=== PATIENT | male | born 1985 | race Caucasian/White ===

== ENCOUNTER 2019-03-17 06:40 | Observation (INO) ==
[2019-03-17 07:02] LABS: Microscopic, Urine URINE MICROSCOPIC (MICROSCOPIC)
[2019-03-17 07:04] LABS: Eosinophils # 0.1 K/mm3 (0.0-0.4); Eosinophils % 0.8 % (0.1-12.0); Hematocrit 46.7 % (42.0-52.0); Lymphocytes # 0.8 K/mm3 (0.7-4.5); Lymphocytes % 5.1 % (10-50); Mean Corpuscular HGB Conc 34.3 g/dL (31.8-35.4); Mean Corpuscular Volume 92.8 fl (80-94); Mean Platelet Volume 7.6 fl (7.4-10.4); Monocytes # 0.8 K/mm3 (0.1-1.0); Neutrophils # 14.6 K/mm3 (1.8-7.8); Platelet Count 267 K/mm3 (142-424); Red Blood Count 5.03 M/mm3 (4.60-6.20); Red Cell Distribution Width 12.4 % (11.5-17.5); White Blood Count 16.4 K/mm3 (4.8-10.8)
[2019-03-17 07:06] LABS: Appearance,Urine CLEAR (Clear); Bilirubin,Urine Negative (Negative); Blood, Urine Negative (Negative); Color,Urine YELLOW (Yellow); Glucose,Urine (UA) Negative (Negative); Ketones,Urine 1+ (Negative); Leukocyte Esterase,Urine Negative (Negative); Protein,Urine Negative (Negative); Specific Gravity, Urine >= 1.030 (1.005-1.030); Urobilinogen,Urine 0.2 EU/dl (0.2)
[2019-03-17 07:17] LABS: Albumin Level 4.4 gm/dL (3.4-5.0); Albumin/Globulin Ratio 1.1 (1.1-1.8); Anion Gap 13.6 mEq/L (5-15); Bilirubin,Total 0.7 mg/dL (0.2-1.0); Calcium 8.8 mg/dL (8.5-10.1); Total Protein,Serum 8.4 gm/dL (6.4-8.2)
--- NOTE | 2019-03-17 07:29 | Emergency Department Note ---
ED Disposition Clinical Impression: Acute appendicitis Qualifiers: Acute appendicitis type: unspecified acute appendicitis type Qualified Code(s): K35.80 - Unspecified acute appendicitis Disposition: Admitted as Observation Condition on Discharge: Good Instructions: DI for Acute Abdomen Referrals: Provider,Referral, [Primary Care Provider] - - Critical Care Critical Care Time: No Attestation: On 03/17/19, the high probability of a clinically significant, sudden or life threatening deterioration of the following system(s) required my full and direct attention, intervention and personal management. The time I documented below is in addition to time spent performing reported procedures but includes the following listed in this critical care notation. Medical Decision Making - Medical Records Medical records reviewed: Yes: I reviewed the patient's medical records. - Favian Inquiry Pt receiving controlled substance: No Vital Signs: 03/17/19 06:49 Temperature 98.6 F Temperature Source Oral Pulse Rate [Right Brachial] 94 H Respiratory Rate 20 Blood Pressure [Right Arm] 144/7 H Blood Pressure Mean [Right Arm] 52 Blood Pressure Source [Right Arm] Automatic Cuff Blood Pressure Position [Right Arm] Sitting 02 Sat by Pulse Oximetry 99 Oxygen Delivery Method Room Air - Lab Data Lab results reviewed: Yes: I reviewed the patient's lab results. Lab Results 03/17/19 06:50: Urine Color Yellow, Urine Appearance Clear, Urine pH 6.0, Ur Specific [place] >= 1.030, Urine Protein Negative, Urine Glucose (UA) Negative, Urine Ketones 1+, Urine Blood Negative, Urine Nitrate Negative, Urine Bilirubin Negative, Urine Urobilinogen 0.2, Ur Leukocyte Esterase Negative, Urine RBC Occasional, Urine WBC 5-10, Ur Squamous Epith Cells 5-10, Urine Bacteria 1+ 03/17/19 06:50: WBC 16.4 H, RBC 5.03, Hgb 16.0, Hct 46.7, MCV 92.8, MCH 31.9 H, MCHC 34.3, RDW 12.4, Plt Count 267, MPV 7.6, Neut % (Auto) 89.0 H, Lymph % (Auto) 5.1 L, [place] % (Auto) 5.0, Eos % (Auto) 0.8, Baso % (Auto) 0.0 L, Neut # (Auto) 14.6 H, Lymph # (Auto) 0.8, [place] # (Auto) 0.8, Eos # (Auto) 0.1, Baso # (Auto) 0.0, Total Counted 100, Neutrophils % (Manual) 89 H, Lymphocytes % (Manual) 7 L, Monocytes % (Manual) 2, Metamyelocytes % 2.0 H, Platelet Estimate Normal, RBC Morphology Normal 03/17/19 06:50: Sodium 136, Potassium 3.6, Chloride 99, Carbon Dioxide 27, Anion Gap 13.6, BUN 13, Creatinine 0.89, Estimated Creat Clear 154, Estimated GFR 98, Est GFR ( Amer) 118, Glucose 133 H, Calcium 8.8, Total Bilirubin 0.7, AST 25, ALT 37, Alkaline Phosphatase 40 L, Total Protein 8.4 H, Albumin 4.4, Globulin 4.0 H, Albumin/Globulin Ratio 1.1, Amylase 20 L, Lipase 65 L Result diagrams: 03/17/19 06:50 03/17/19 06:50 Orders (Tests/Meds): ED MEDICATIONS Generic Name Dose Route Start Last Admin Trade Name Freq PRN Reason Stop Dose Admin Sodium Chloride 1,000 mls @ 999 mls/hr 03/17/19 07:00 03/17/19 07:03 Sod Chlor 0.9% 1000ml Bag IV 03/17/19 08:00 999 mls/hr .[id number] PRASANNA Administration Discontinued Medications Generic Name Dose Route Start Last Admin Trade Name Freq PRN Reason Stop Dose Admin Ioversol 75 ml 03/17/19 07:31 03/17/19 07:31 Rad-Optiray 350 100ml Vial IV 03/17/19 07:32 75 ml ONCE ONE Administration Protocol Ketorolac Tromethamine 30 mg 03/17/19 06:56 03/17/19 07:03 Toradol 30mg/Ml Vial IV 03/17/19 06:57 30 mg ONCE ONE Administration Ondansetron HCl 4 mg 03/17/19 06:56 03/17/19 07:03 Zofran 4mg/2ml Vial IV 03/17/19 06:57 4 mg ONCE ONE Administration ORDERS Category Date Time Status CT abdomen pelvis w con Stat Cat Scan 03/17/19 06:56 Taken - CT Data CT Scan: Abdomen, Pelvis Time Received: 07:[address] Reviewed: Yes: I have viewed the radiologist's interpretation Preliminary Findings: Abnormal (acute appendicitis) - Physician Consults Physician Consulted: libia Reason -: Admission Nausea/Vomiting/Diarrhea HPI - General Chief complaint: Abdominal Pain Stated complaint: right side pain Time Seen by Provider: 03/17/19 07:25 Mode of Arrival: Ambulatory Source of Information: Patient, Medical Record Limitations: No Limitations Description of Symptoms (Recalled from ER Triage Doc. by RN): PATIENT AMBULATORY TO TX 10 C/O R SIDE ABDOMINAL PAIN THAT STARTED AROUND 0230 THIS AM. STATES HE INITIALLY THOUGHT HE "WAS BACKED UP" SO HE TOOK SOME MAG CITRATE IN ORDER TO INDUCE A BM. STATES MAG CITRATE HAS NOT HELPED AND HE IS STILL EXPERIENCING THE PAIN. REPORTS JUST FINISHING TREATMENT FOR HEP C. - History of Present Illness HPI Narrative: acute onset of rt lower abd pain MD complaint: nausea, abdominal pain Onset (ago): hour(s) Associated Abdominal Pain: Yes Location of pain: periumbilical Severity: moderate Associated symptoms: denies other symptoms - Related Data Home Medications Medication Instructions Recorded Confirmed Amitriptyline HCl [Elavil 25mg 1 tab PO DAILY 03/17/19 03/17/19 tablet] Allergies Allergy/AdvReac Type Severity Reaction Status Date / Time No Known Allergies Allergy Verified 03/17/19 06:55 [facility] History - Hepatitis A Screen Drug use history?: No High risk sexual behaviors?: No History of sexually transmitted infection?: No Currently employed?: No Childcare worker?: No Do you have indoor plumbing?: Yes Do you have electricity?: Yes Attestation statement:: This patient has been screened for Hepatitis A risk factors. I have reviewed the patient's past medical history: Yes - Social History Smoking Status: Current every day smoker Tobacco Type: cigars # Packs/Day (cigarettes): 4 Alcohol Intake: current Alcohol Intake Frequency:: 3 or more drinks per day Occupational Status: employed Housing: house Household Members: significant other ROS Obtained: Yes All systems reviewed & no additional complaints - Constitutional Constitutional: Denies fever(s) - Eyes Eyes: Denies change in vision - ENT Ears, Nose, Mouth, and Throat: Denies sore throat - Cardiovascular Cardiovascular: Denies chest pain - Respiratory Respiratory: No cough - Gastrointestinal Gastrointestingal: Reports: as per HPI, abdominal pain, nausea. Denies: vomiting - Genitourinary Male Genitourinary: Denies hematuria - Musculoskeletal Musculoskeletal: Denies joint pain, Denies joint swelling - Integumentary/Breasts Skin/Breast: Denies rash - Neurologic Neurologic: Denies focal weakness, Denies seizure-like activity Physical Exam - General General appearance: alert - Head Head exam: normocephalic - Eye Eye exam: Present: PERRL, EOMI. Absent: scleral icterus - ENT ENT exam: Present: mucous membranes dry - Neck Neck exam: Present: trachea midline - Respiratory Respiratory exam: Present: normal lung sounds bilaterally. Absent: respiratory distress - Cardiovascular Cardiovascular exam: Present: regular rate - Abdominal Exam Abdominal exam: Present: soft, tenderness, tenderness at McBurney's Point Abdominal tenderness: Present: RLQ, moderate - Extremities Exam Extremities exam: Present: full ROM - Neurological Exam Neurological exam: Present: alert, oriented X3, CN II-XII intact - Psychiatric Psychiatric exam: Present: normal affect - Skin Skin exam: Absent: rash
[2019-03-17 07:34] LABS: Lymphocytes % 7 % (10-50); Monocytes % 2 % (2-9); Neutrophils % 89 % (42-76); RBC Morphology Normal; Total Cells Counted 100
[2019-03-17 07:40] LABS: Bacteria,Urine 1+ /lpf; RBC,Urine Occasional #/hpf (0-3)
--- NOTE | 2019-03-17 09:25 | Pharmacy Consult Notes ---
[facility] Pharmacy VTE Monitoring - Patient Demographics Admission date: 03/17/19 Report Date: 03/17/19 Time: 09:23 Allergies/Adverse Reactions: Patient Allergies No Known Allergies Allergy (Verified 03/17/19 06:55) Height: 1.8 m Weight: 91.427 kg Patient Problems: Current Active Problems Acute appendicitis (Acute) - VTE Risk Labs: VTE Related Lab Results Hgb 16.0 g/dL (14.1-18.0) 03/17/19 06:50 Hct 46.7 % (42.0-52.0) 03/17/19 06:50 Plt Count 267 K/mm3 (142-424) 03/17/19 06:50 BUN 13 mg/dL (7-18) 03/17/19 06:50 Creatinine 0.89 mg/dL (0.70-1.30) 03/17/19 06:50 Estimated Creat Clear 154 mL/min (50-200) 03/17/19 06:50 Was VTE Risk Assessment Performed: Yes VTE Risk Level: Very Low Risk Clinical Trial Participant: No - Prophylaxis VTE Prophylaxis Ordered?: Yes Types of VTE Prophylaxis: TEDS Knee High
--- NOTE | 2019-03-17 09:46 | History & Physical Report ---
*Admission Date: 03/17/19 *Chief complaint: Right lower quadrant abdominal pain *History of present illness: This is a 34yo male who presented to the ED earlier this AM with increasing RLQ pain. See HPI forwarded from ED evaluation below: Nausea/Vomiting/Diarrhea HPI - General Chief complaint: Abdominal Pain Stated complaint: right side pain Time Seen by Provider: 03/17/19 07:25 Mode of Arrival: Ambulatory Source of Information: Patient, Medical Record Limitations: No Limitations Description of Symptoms (Recalled from ER Triage Doc. by RN): PATIENT AMBULATORY TO TX 10 C/O R SIDE ABDOMINAL PAIN THAT STARTED AROUND 0230 THIS AM. STATES HE INITIALLY THOUGHT HE "WAS BACKED UP" SO HE TOOK SOME MAG CITRATE IN ORDER TO INDUCE A BM. STATES MAG CITRATE HAS NOT HELPED AND HE IS STILL EXPERIENCING THE PAIN. REPORTS JUST FINISHING TREATMENT FOR HEP C. - History of Present Illness HPI Narrative: acute onset of rt lower abd pain MD complaint: nausea, abdominal pain Onset (ago): hour(s) Associated Abdominal Pain: Yes Location of pain: periumbilical Severity: moderate Associated symptoms: denies other symptoms [facility] History Medical History: Denies:: Asthma, Cancer, Chronic Obstructive Pulmonary Disease (COPD), Diabetes Mellitus Type 1, Diabetes Mellitus Type 2, Gall Bladder Disease, Hypertension *Have you ever received a pneumonia vaccine?: No *Have you received a flu vaccine this season?: Yes - *Social History Educational Level: Completed GED/General Educational Development Smoking Status: Current some day smoker Tobacco Type: cigars # Packs/Day (cigarettes): 0 Alcohol Intake: current Alcohol Intake Frequency:: 0-2 drinks per day Substance Use Type: crack/cocaine, methamphetamine *Occupational Status:: employed Housing: house Household Members: significant other *Travel in the last 8 weeks: None Family Hx:: No significant family history Review of Systems - Review of Systems Review of systems:: pertinent systems reviewed and negative unless documented below - Constitutional Denies chills - Eyes Denies change in vision - ENT Denies change in voice - *Cardiovascular Denies chest pain - *Respiratory Denies cough - *Gastrointestinal Reports abdominal pain, Reports nausea - *Genitourinary Denies difficulty urinating - *Musculoskeletal Denies abnormal walking - Integumentary/Breasts Denies change in hair - *Neurologic Denies abnormal hearing, Denies localized weakness, Denies seizure-like activity - Psychiatric Denies anxiety - Endocrine Denies cold intolerance - Hematologic/Lymphatic Denies easy bleeding - Allergic/Immunologic Denies GI upset with certain foods Meds Home Medications Medication Instructions Recorded Confirmed Type Amitriptyline HCl [Elavil 25mg 25 mg PO DAILY 03/17/19 03/17/19 History tablet] Allergies Allergy/AdvReac Type Severity Reaction Status Date / Time No Known Allergies Allergy Verified 03/17/19 06:55 Exam Vital signs and Labs for Last 24 Hours: Temp Pulse Resp BP Pulse Ox 98.7 F 73 18 139/84 99 03/17/19 08:52 03/17/19 08:52 03/17/19 08:52 03/17/19 08:52 03/17/19 08:52 Laboratory Results - last 24 hr 03/17/19 06:50: Urine Color Yellow, Urine Appearance Clear, Urine pH 6.0, Ur Specific [place] >= 1.030, Urine Protein Negative, Urine Glucose (UA) Negative, Urine Ketones 1+, Urine Blood Negative, Urine Nitrate Negative, Urine Bilirubin Negative, Urine Urobilinogen 0.2, Ur Leukocyte Esterase Negative, Urine RBC Occasional, Urine WBC 5-10, Ur Squamous Epith Cells 5-10, Urine Bacteria 1+ 03/17/19 06:50: WBC 16.4 H, RBC 5.03, Hgb 16.0, Hct 46.7, MCV 92.8, MCH 31.9 H, MCHC 34.3, RDW 12.4, Plt Count 267, MPV 7.6, Neut % (Auto) 89.0 H, Lymph % (Auto) 5.1 L, [place] % (Auto) 5.0, Eos % (Auto) 0.8, Baso % (Auto) 0.0 L, Neut # (Auto) 14.6 H, Lymph # (Auto) 0.8, [place] # (Auto) 0.8, Eos # (Auto) 0.1, Baso # (Auto) 0.0, Total Counted 100, Neutrophils % (Manual) 89 H, Lymphocytes % (Manual) 7 L, Monocytes % (Manual) 2, Metamyelocytes % 2.0 H, Platelet Estimate Normal, RBC Morphology Normal 03/17/19 06:50: Sodium 136, Potassium 3.6, Chloride 99, Carbon Dioxide 27, Anion Gap 13.6, BUN 13, Creatinine 0.89, Estimated Creat Clear 154, Estimated GFR 98, Est GFR ( Amer) 118, Glucose 133 H, Calcium 8.8, Total Bilirubin 0.7, AST 25, ALT 37, Alkaline Phosphatase 40 L, Total Protein 8.4 H, Albumin 4.4, Globulin 4.0 H, Albumin/Globulin Ratio 1.1, Amylase 20 L, Lipase 65 L I & O for Last 24 hours: Intake & Output 03/14/19 03/15/19 03/16/19 03/17/19 11:59 11:59 11:59 11:59 Intake Total 1100 / 1100 Balance 1100 / 1100 Weight 201 lb 9 oz - Constitutional no acute distress - *Routine HEENT Exam Head: Present: normocephalic, atraumatic - *Routine Neck Exam Present: supple, full ROM - Routine Chest/Breast/Axilla Exam Chest wall: Absent: tenderness - *Routine Respiratory Exam Absent: respiratory distress - *Routine Cardiovascular Exam Present: RRR - *Routine Abdominal Exam Present: soft, tenderness Comments: RLQ TTP - *Routine Extremities Exam Present: full ROM. Absent: cyanosis, clubbing, edema - Routine Back/Spine/Pelvis Exam Back/Spine: Present: full ROM - *Routine Skin Exam Present: intact - *Routine Neurological Exam Present: alert - Routine Psychiatric Exam Present: normal affect H&P: Result - Imaging and Cardiology CT scan - abdomen Status: image reviewed by me, final report Assessment and Plan (1) Acute appendicitis Current visit: Yes Status: Acute Qualifiers: Acute appendicitis type: unspecified acute appendicitis type Qualified Code(s): K35.80 - Unspecified acute appendicitis Category: Medical Code(s): K35.80 - Unspecified acute appendicitis NPO IVFs Preoperative antibiotic dosing He is being scheduled for laparoscopic appendectomy I have discussed the risks and benefits including, but not limited to: Bleeding Infection Damage to surrounding tissue Inherent risks of sedation The patient agrees to proceed.
--- NOTE | 2019-03-17 16:08 | Operative Note ---
Date of procedure: 03/17/19 Pre-op Diagnosis:: Appendicitis Post-op Diagnosis:: Suppurative/necrotic appendicitis Procedure performed:: Laparoscopic appendectomy Surgeon:: Kareem Pompa MD Athletic Team Physician(s):: David ATHLETIC EQUIPMENT MANAGER:: Surjit Werner Anesthesia: GETA Estimated blood loss (mL): 15 Operative findings:: Severe periappendiceal inflammation No definitive perforation Necrotic/separative appendicitis Staple margin appeared viable Operative note:: After informed consent was obtained the patient was taken to the operating room and placed in the supine position. General anesthesia was induced and his abdomen was prepped and draped in a sterile fashion. After infiltration with local anesthetic an infraumbilical incision was made. A Veress needle was placed in position. The abdomen was insufflated. A 12 mm optical trocar was placed in position. Under direct visualization a 5 mm trocar was placed in the suprapubic position and an additional 5 mm trocar was placed in the left lower quadrant. The appendix was carefully elevated. Severe periappendiceal inflammation was noted. The appendix was adhered densely to the inferior/lateral colonic wall, small bowel, and mesoappendix. No obvious injury to the colon or small bowel was noted. A combination of blunt dissection and harmonic lg was utilized to free the appendix from surrounding tissue. An Endopath stapling device was utilized to transect the appendix at its base. The appendix was placed in a retrieval bag and removed through the infraumbilical trocar site. No active bleeding or sign of injury was noted. The staple margin was evaluated and appeared viable. No sign of colonic or small bowel injury was noted. The right lower quadrant was thoroughly irrigated. Pneumoperitoneum was released as the trocars were removed. Fascia at the infraumbilical trocar site was reapproximated with interrupted 0 Ethibond. And was closed with 4-0 Monocryl. Dressings were applied and the patient was transferred to recovery in stable condition. Condition: stable Disposition: PACU Specimens:: Appendix Complications:: No immediate
--- NOTE | 2019-03-17 16:22 | Progress Note ---
[facility] Anesthesia Checklist - Structural Data Admitted From: Inpatient Planned Operative Procedure/s: lap appy Consent for Planned Operative Procedure(s) Verified: Yes - Airway Assessment C-Spine Mobility Assessed: Yes TMJ Mobility Assessed: Yes Dentition: Good Dentition - Neurological Assessment Level of Consciousness: Awake, Alert, Appropriate - Anesthesia Plan Anesthesia Risk discussed: Yes Anesthesia Plan: Verified ASA Class: II Anesthesia Type: General [facility] History I have reviewed the patient's past medical history: Yes Medical History: Denies:: Asthma, Cancer, Chronic Obstructive Pulmonary Disease (COPD), Diabetes Mellitus Type 1, Diabetes Mellitus Type 2, Gall Bladder Disease, Hypertension *Have you ever received a pneumonia vaccine?: No *Have you received a flu vaccine this season?: Yes Anesthesia experience/problems:: none - *Social History Educational Level: Completed GED/General Educational Development Smoking Status: Current some day smoker Tobacco Type: cigars # Packs/Day (cigarettes): 0 Alcohol Intake: current Alcohol Intake Frequency:: 0-2 drinks per day Substance Use Type: crack/cocaine, methamphetamine *Occupational Status:: employed Housing: house Household Members: significant other *Travel in the last 8 weeks: None Family Hx:: No significant family history
--- NOTE | 2019-03-17 16:23 | Progress Note ---
[facility] Anesthesia Record Part I Intake, IV Amount: 1,500 Estimated blood loss (mL): 0 Urine output (mL): 200 Blood Pressure: 156/83 SaO2: 95 Pulse Rate: 106 Respiratory Rate: 14 Temperature: 98.9 F Patient is:: Awake, Stable Stable to PACU at:: 16:15
[2019-03-18 06:40] LABS: Basophils % 0.1 % (0.1-2.0); Eosinophils % 0.1 % (0.1-12.0); Hematocrit 41.1 % (42.0-52.0); Lymphocytes # 1.1 K/mm3 (0.7-4.5); Lymphocytes % 7.3 % (10-50); Mean Platelet Volume 7.9 fl (7.4-10.4); Monocytes # 0.7 K/mm3 (0.1-1.0); Monocytes % 4.5 % (1.7-9.3); Neutrophils # 13.4 K/mm3 (1.8-7.8); Neutrophils % 88.1 % (37.0-80.0); Platelet Count 234 K/mm3 (142-424); Red Blood Count 4.47 M/mm3 (4.60-6.20); Red Cell Distribution Width 12.3 % (11.5-17.5); White Blood Count 15.2 K/mm3 (4.8-10.8)
--- NOTE | 2019-03-18 07:26 | Progress Note ---
Subjective Patient reports: feels better Narrative: Still having some abdominal pain. Some right-sided shoulder pain noted. Exam Vital signs and Labs for Last 24 Hours: Temp Pulse Resp BP Pulse Ox 98.2 F 82 16 141/82 H 97 03/18/19 04:00 03/18/19 04:00 03/18/19 04:00 03/18/19 04:00 03/18/19 04:00 Laboratory Results - last 24 hr 03/17/19 06:50: Urine RBC Occasional, Urine WBC 5-10, Ur Squamous Epith Cells 5- 10, Urine Bacteria 1+ 03/17/19 06:50: Total Counted 100, Neutrophils % (Manual) 89 H, Lymphocytes % (Manual) 7 L, Monocytes % (Manual) 2, Metamyelocytes % 2.0 H, Platelet Estimate Normal, RBC Morphology Normal 03/17/19 15:00: Urine Color Yellow, Urine Appearance Clear, Urine pH 6.0, Ur Specific [place] 1.025, Urine Protein Negative, Urine Glucose (UA) Negative, Urine Ketones 2+, Urine Blood Negative, Urine Nitrate Negative, Urine Bilirubin Negative, Urine Urobilinogen 0.2, Ur Leukocyte Esterase Negative, Urine WBC 3-5, Ur Squamous Epith Cells Occasional, Urine Bacteria Trace 03/18/19 05:38: WBC 15.2 H, RBC 4.47 L, Hgb 14.0 L D, Hct 41.1 L, MCV 92.0, MCH 31.3 H, MCHC 34.0, RDW 12.3, Plt Count 234, MPV 7.9, Neut % (Auto) 88.1 H, Lymph % (Auto) 7.3 L, [place] % (Auto) 4.5, Eos % (Auto) 0.1, Baso % (Auto) 0.1, Neut # (Auto) 13.4 H, Lymph # (Auto) 1.1, [place] # (Auto) 0.7, Eos # (Auto) 0.0, Baso # (Auto) 0.0 I & O for Last 24 hours: Intake & Output 03/15/19 03/16/19 03/17/19 03/18/19 11:59 11:59 11:59 11:59 Intake Total 1100 / 1100 2793 / 2793 Output Total 2100 / 2100 Balance 1100 / 1100 693 / 693 Weight 201 lb 9 oz 205 lb 5 oz - Constitutional no acute distress - *Routine Respiratory Exam Absent: respiratory distress - *Routine Cardiovascular Exam Present: RRR - *Routine Abdominal Exam Present: soft Progress Note: A&P (1) Acute appendicitis Status: Acute Current Visit: Yes (2) Suppurative appendicitis Status: Acute Assessment and plan: Necrotic/separative appendicitis... Overall, doing well status post laparoscopic appendectomy Increase ambulation Continue IV antibiotics Possible discharge home tomorrow with completion course of PO abx Current Visit: Yes
[2019-03-18 10:56] LABS: Lymphocytes % 8 % (10-50); Monocytes % 6 % (2-9); Neutrophils % 86 % (42-76); Total Cells Counted 100
[2019-03-18 10:57] LABS: RBC Morphology Normal
[2019-03-19 06:38] LABS: Basophils % 0.2 % (0.1-2.0); Eosinophils # 0.1 K/mm3 (0.0-0.4); Eosinophils % 0.9 % (0.1-12.0); Hemoglobin 13.3 g/dL (14.1-18.0); Lymphocytes % 35.5 % (10-50); Mean Corpuscular HGB Conc 33.2 g/dL (31.8-35.4); Mean Corpuscular Volume 94.5 fl (80-94); Mean Platelet Volume 7.8 fl (7.4-10.4); Monocytes # 0.5 K/mm3 (0.1-1.0); Monocytes % 6.1 % (1.7-9.3); Neutrophils # 4.9 K/mm3 (1.8-7.8); Neutrophils % 57.4 % (37.0-80.0); Platelet Count 229 K/mm3 (142-424); Red Blood Count 4.23 M/mm3 (4.60-6.20); Red Cell Distribution Width 12.5 % (11.5-17.5); White Blood Count 8.5 K/mm3 (4.8-10.8)
--- NOTE | 2019-03-19 07:07 | Progress Note ---
Subjective Patient reports: no new complaints, feels better Exam Vital signs and Labs for Last 24 Hours: Temp Pulse Resp BP Pulse Ox 97.9 F 61 20 141/89 H 95 03/19/19 04:00 03/19/19 04:00 03/19/19 04:00 03/19/19 04:00 03/19/19 04:00 Laboratory Results - last 24 hr 03/18/19 05:38: Total Counted 100, Neutrophils % (Manual) 86 H, Lymphocytes % (Manual) 8 L, Monocytes % (Manual) 6, Platelet Estimate Normal, RBC Morphology Normal 03/19/19 05:25: WBC 8.5 D, RBC 4.23 L, Hgb 13.3 L, Hct 40.0 L, MCV 94.5 H, MCH 31.4 H, MCHC 33.2, RDW 12.5, Plt Count 229, MPV 7.8, Neut % (Auto) 57.4, Lymph % (Auto) 35.5, [place] % (Auto) 6.1, Eos % (Auto) 0.9, Baso % (Auto) 0.2, Neut # (Auto) 4.9, Lymph # (Auto) 3.0, [place] # (Auto) 0.5, Eos # (Auto) 0.1, Baso # (Auto) 0.0 I & O for Last 24 hours: Intake & Output 03/16/19 03/17/19 03/18/19 03/19/19 11:59 11:59 11:59 11:59 Intake Total 1100 / 1100 3033 / 3033 1499 / 1499 Output Total 2100 / 2100 1000 / 1000 Balance 1100 / 1100 933 / 933 499 / 499 Weight 201 lb 9 oz 205 lb 5 oz 206 lb 6 oz - Constitutional no acute distress - *Routine Respiratory Exam Absent: respiratory distress - *Routine Cardiovascular Exam Present: RRR - *Routine Abdominal Exam Present: soft Comments: Dressings intact. No erythema. Progress Note: A&P (1) Acute appendicitis Status: Acute Current Visit: Yes (2) Suppurative appendicitis Status: Acute Assessment and plan: Overall, doing very well status post laparoscopic appendectomy. Discharge home today with outpatient follow-up Complete course of Augmentin secondary to suppurative/necrotic nature of appendicitis Current Visit: Yes
--- NOTE | 2019-03-19 07:13 | Discharge Summary ---
General - General Admission date:: 03/17/19 Discharge date: 03/19/19 HPI HPI: This is a 34yo male who presented to the ED earlier this AM with increasing RLQ pain. See HPI forwarded from ED evaluation below: Nausea/Vomiting/Diarrhea HPI - General Chief complaint: Abdominal Pain Stated complaint: right side pain Time Seen by Provider: 03/17/19 07:25 Mode of Arrival: Ambulatory Source of Information: Patient, Medical Record Limitations: No Limitations Description of Symptoms (Recalled from ER Triage Doc. by RN): PATIENT AMBULATORY TO TX 10 C/O R SIDE ABDOMINAL PAIN THAT STARTED AROUND 0230 THIS AM. STATES HE INITIALLY THOUGHT HE "WAS BACKED UP" SO HE TOOK SOME MAG CITRATE IN ORDER TO INDUCE A BM. STATES MAG CITRATE HAS NOT HELPED AND HE IS STILL EXPERIENCING THE PAIN. REPORTS JUST FINISHING TREATMENT FOR HEP C. - History of Present Illness HPI Narrative: acute onset of rt lower abd pain MD complaint: nausea, abdominal pain Onset (ago): hour(s) Associated Abdominal Pain: Yes Location of pain: periumbilical Severity: moderate Associated symptoms: denies other symptoms Hospital Course Hospital Course: The patient underwent laparoscopic appendectomy. Please see operative report for detail. Necrotic/separative appendicitis confirmed. Postoperatively, he convalesced well and continued dosing of Zosyn. He remained afebrile with stable and normal vital signs and was deemed appropriate for discharge on the morning of postoperative day 2. At the time of discharge she was ambulating without difficulty and tolerating advancement of his diet. Objective Vital signs: Temp Pulse Resp BP Pulse Ox 97.9 F 61 20 141/89 H 95 03/19/19 04:00 03/19/19 04:00 03/19/19 04:00 03/19/19 04:00 03/19/19 04:00 no acute distress - *Routine HEENT Exam Head: Present: normocephalic, atraumatic - *Routine Neck Exam Present: supple - Routine Chest/Breast/Axilla Exam Chest wall: Absent: tenderness - *Routine Respiratory Exam Absent: respiratory distress - *Routine Cardiovascular Exam Present: RRR - *Routine Abdominal Exam Present: soft - *Routine Extremities Exam Present: full ROM. Absent: cyanosis, clubbing, edema - Routine Back/Spine/Pelvis Exam Back/Spine: Present: full ROM - *Routine Skin Exam Absent: erythema - *Routine Neurological Exam Present: alert, oriented X3 - Routine Psychiatric Exam Present: normal affect Results Labs on day of discharge: Labs from last 24 hours 03/19/19 03/18/19 05:25 05:38 WBC 8.5 D RBC 4.23 L Hgb 13.3 L Hct 40.0 L MCV 94.5 H MCH 31.4 H MCHC 33.2 RDW 12.5 Plt Count 229 MPV 7.8 Neut % (Auto) 57.4 Lymph % (Auto) 35.5 Avery % (Auto) 6.1 Eos % (Auto) 0.9 Baso % (Auto) 0.2 Neut # (Auto) 4.9 Lymph # (Auto) 3.0 Avery # (Auto) 0.5 Eos # (Auto) 0.1 Baso # (Auto) 0.0 Total Counted 100 Neutrophils % (Manual) 86 H Lymphocytes % (Manual) 8 L Monocytes % (Manual) 6 Platelet Estimate Normal RBC Morphology Normal DS: Diagnosis - Discharge Diagnosis (1) Acute appendicitis Status: Acute (2) Suppurative appendicitis Status: Acute Discharge Plan - Patient Discharge Instructions ACTIVITY: No heavy lifting DIET: advance to your usual diet Patient Instructions: How to Care for a Surgical Wound, DI for Appendicitis -- Adult - Follow up Plan Follow up with: Kareem Pompa MD [Staff Physician] - 03/25/19 Disposition: Home, Self-Residential Medications: Home Medications Medication Instructions Recorded Confirmed Type Amitriptyline HCl [Elavil 25mg 25 mg PO DAILY 03/17/19 03/17/19 History tablet] Amoxicillin/Potassium Clav 1 tab PO Q12H #14 tab 03/19/19 Rx [Augmentin 875-125 Tablet] Hydrocod/Acet 5/325 mg [Yukon 1 - 2 tab PO Q6HP PRN #9 tab 03/19/19 Rx 5/325mg tablet] Prescriptions/Medication Reconciliation: New Amoxicillin/Potassium Clav [Augmentin 875-125 Tablet] 1 tab PO Q12H #14 tab Hydrocod/Acet 5/325 mg [Y[place]on 5/325mg tablet] 1 - 2 tab PO Q6HP PRN #9 tab PRN Reason: post-op pain Continued Amitriptyline HCl [Elavil 25mg tablet] 25 mg PO DAILY - Problem Reconciliation Problems Reviewed?: Yes
== END 2019-03-19 08:59 | disposition home or self-care (01) ==
LOC: ER 06:40 → INTOOBSV 08:06 → 2ND 08:06
PROVIDERS: ADMIT Surgery; ATTEND Surgery
DX: K35.80 Unspecified acute appendicitis
CPT/HCPCS: 36415; 74177; 80053; 81001; 82150; 83690; 85007; 85025; 96365; 96367; 96375; 99284; G0378; J1335; J2405; J2543; J2710; Q9967